=== PATIENT | male | born 1965 | race African-American/Black ===

== ENCOUNTER 2019-08-26 06:30 | Inpatient (IN) | payer OTHER ==
[~2019-08-26] VITALS: Ht 182.9 cm; Wt 99.8 kg
[2019-08-26] MEDS ORDERED: MIDAZOLAM HCL 2 MG/2 ML VIAL ONE (06:37)
[2019-08-26] MEDS ORDERED: ETOMIDATE 2MG/ML 10ML VIAL IV ONE ×2 (06:40→06:45)
[2019-08-26] MEDS ORDERED: SUCCINYLCHOLINE CHLORIDE 200MG/10ML IV ONE ×2 (06:40→06:45)
[2019-08-26] MEDS ORDERED: MIDAZOLAM HCL 50 MG in DEXTROSE 5% WATER 40 ML IV ONE ×3 (06:45→10:00)
[2019-08-26] MEDS ORDERED: MIDAZOLAM HCL 2 MG/2 ML VIAL IV ONE (06:45)
[2019-08-26] MEDS ORDERED: FUROSEMIDE 40MG/4ML VIAL IVP ONE (07:00)
[2019-08-26] MEDS ORDERED: NITROGLYCERIN 50MG PREMIX 250 ML IV ONE (07:00)
[2019-08-26] MEDS ORDERED: ASPIRIN 300MG SUPP PR ONE (07:00)
[2019-08-26 07:06] LABS: EOSINOPHILS % 2.7 % (0.0-5.0); HEMATOCRIT. 41.6 % (42.0-52.0); HEMOGLOBIN. 13.8 g/dL (14.0-18.0); LYMPHOCYTES % 33.9 % (20.0-50.0); MEAN CORPUSCULAR VOLUME 87.4 fL (80.0-94.0); MEAN PLATELET VOLUME 9.8 fl (7.4-10.4); MONOCYTES % 6.9 % (2.0-8.0); NEUTROPHILS % 55.5 % (40.0-76.0); PLATELET 280 x1000/uL (130-400); RED BLOOD CELL COUNT 4.76 mill/uL (4.7-6.1); RED CELL DISTRIBUTION WIDTH 15.6 % (11.6-14.6)
[2019-08-26 07:10] LABS: CHLORIDE 111 mEq/L (98-107)
[2019-08-26] MEDS ORDERED: ENOXAPARIN 100MG/ML SYR SUBCUT ONE (07:45)
[2019-08-26] MEDS ORDERED: AZITHROMYCIN 500 MG in DEXT 5% WATER 250 ML IV ONE (08:00)
[2019-08-26 08:26] LABS: *AMPHETAMINES SCREEN URINE NEGATIVE (NEGATIVE)
[2019-08-26 08:27] LABS: *BARBITURATES SCREEN URINE NEGATIVE (NEGATIVE); *BENZODIAZEPINES SCREEN URINE NEGATIVE (NEGATIVE); *COCAINE SCREEN URINE NEGATIVE (NEGATIVE); METHADONE URINE SCREEN NEGATIVE (NEGATIVE); OPIATES URINE SCREEN NEGATIVE (NEGATIVE)
[2019-08-26 08:28] LABS: CANNABINOID URINE SCREEN NEGATIVE (NEGATIVE); PHENCYCLIDINE URINE SCREEN NEGATIVE (NEGATIVE)
[2019-08-26 08:31] LABS: BG BASE EXCESS -2.8 mmol/L (-2.0-2.0); BG CARBOXYHEMOGLOBIN 0.7 % (0.5-1.5); BG DEOXYHEMOGLOBIN 17.1 % (0.0-5.0); BG METHEMOGLOBIN 0.2 % (0.0-1.5); BG OXYGEN SATURATION 82.7 % (92.0-98.5); BG PCO2 64.4 mmHg (35.0-45.0); BG PH 7.224 (7.350-7.450); BG PO2 56.2 mmHg (75.0-100.0); BG SAMPLE SITE RIGHT RADIAL; BG TIDAL VOLUME(mL) 500 mL; BG VENT MODE VENT - A/C; BG VENT RATE 16 set
[2019-08-26] MEDS ORDERED: PROPOFOL 10MG/ML 100ML 100 ML IV SCH (09:00)
[2019-08-26] MEDS ORDERED: LIDOCAINE HCL 1% 20ML VIAL (Pyxis) INJ ONE (13:49)
[2019-08-26] MEDS ORDERED: ACETAMINOPHEN 650MG/20.3ML UDC NG PRN (15:00)
[2019-08-26] MEDS ORDERED: DIPHENHYDRAMINE 50MG/ML VIAL IV PRN (15:00)
[2019-08-26] MEDS ORDERED: LORAZEPAM 2MG/ML CPJ IV PRN (15:00)
[2019-08-26] MEDS ORDERED: ONDANSETRON HCL 4MG/2ML INJ IV PRN (15:00)
[2019-08-26] MEDS ORDERED: DEXT 5%/0.45% NACL 1000ML 1,000 ML IV SCH (15:30)
[2019-08-26] MEDS ORDERED: PIPERACILLIN/TAZOBACTAM 2.25 G in DEXTROSE 5% WATER 50 ML IV SCH (15:45)
[2019-08-26 16:19] LABS: BG BASE EXCESS 3.3 mmol/L (-2.0-2.0); BG CARBOXYHEMOGLOBIN 0.1 % (0.5-1.5); BG DEOXYHEMOGLOBIN 3.9 % (0.0-5.0); BG FRACTION INSPIRED OXYGEN 100; BG HCO3 ACT 28.6 mmol/L (22.0-26.0); BG METHEMOGLOBIN 0.2 % (0.0-1.5); BG OXYGEN SATURATION 96.1 % (92.0-98.5); BG OXYHEMOGLOBIN 95.8 % (94.0-97.0); BG PCO2 46.3 mmHg (35.0-45.0); BG PH 7.408 (7.350-7.450); BG PO2 94.9 mmHg (75.0-100.0); BG SAMPLE SITE RIGHT RADIAL; BG TIDAL VOLUME(mL) 500 mL; BG VENT MODE VENT - A/C; BG VENT RATE 18 set
[2019-08-26] MEDS: DEXT 5%/0.45% NACL 1000ML 1,000 ML IV SCH ×2 (18:04→18:54)
[2019-08-26] MEDS: FUROSEMIDE 40MG/4ML VIAL IVP SCH (18:05)
[2019-08-26] MEDS ORDERED: FENTANYL CITRATE/PF 500 MCG in SODIUM CHLORIDE 0.9% 40 ML IV PRN (19:30)
[2019-08-26] MEDS ORDERED: PROPOFOL 10MG/ML 100ML 100 ML IV PRN (19:30)
[2019-08-26] MEDS ORDERED: PIPERACILLIN/TAZ 3.375G PREMIX 50 ML IV SCH (23:30)
[2019-08-27] VITALS (65 sets, daily range): BP systolic 104–193; BP diastolic 65–107
[2019-08-27] MEDS: FENTANYL CITRATE/PF 500 MCG in SODIUM CHLORIDE 0.9% 40 ML IV PRN ×3 (01:30→11:27)
[2019-08-27] MEDS ORDERED: CLONIDINE 0.1MG TABLET PO NR (03:15)
[2019-08-27 03:55] LABS: BASOPHILS % 0.7 % (0.0-2.0); EOSINOPHILS % 1.4 % (0.0-5.0); HEMATOCRIT. 32.1 % (42.0-52.0); HEMOGLOBIN. 11.2 g/dL (14.0-18.0); MEAN CORPUSCULAR HEMOGLOBIN 29.7 pg (28.0-32.0); MEAN CORPUSCULAR VOLUME 85.5 fL (80.0-94.0); MEAN PLATELET VOLUME 9.3 fl (7.4-10.4); MONOCYTES % 7.7 % (2.0-8.0); NEUTROPHILS % 72.2 % (40.0-76.0); PLATELET 212 x1000/uL (130-400); RED BLOOD CELL COUNT 3.76 mill/uL (4.7-6.1); RED CELL DISTRIBUTION WIDTH 14.9 % (11.6-14.6)
[2019-08-27] MEDS ORDERED: NITROGLYCERIN OINT 1GM/INCH UDPKT TD SCH (04:00)
[2019-08-27 04:01] LABS: CHLORIDE 109 mEq/L (98-107)
[2019-08-27 04:06] LABS: PHOSPHORUS 4.4 mg/dL (2.5-4.9)
[2019-08-27] MEDS ORDERED: HYDRALAZINE 20MG/ML VIAL IV PRN (04:30)
[2019-08-27] MEDS: HYDRALAZINE 20MG/ML VIAL IV PRN ×2 (05:09→09:20)
[2019-08-27] MEDS: PANTOPRAZOLE SODIUM 40 MG/VIAL IV SCH (09:18)
[2019-08-27] MEDS: ENOXAPARIN 40MG/0.4ML SYR SUBCUT SCH (09:19)
[2019-08-27] MEDS: CLOPIDOGREL 75MG TABLET NG SCH (09:19)
[2019-08-27] MEDS: NITROGLYCERIN OINT 1GM/INCH UDPKT TD SCH ×3 (09:19→21:35)
[2019-08-27] MEDS: CLONIDINE 0.1MG TABLET PO SCH ×3 (09:20→21:35)
[2019-08-27 09:23] LABS: BG BASE EXCESS 8.4 mmol/L (-2.0-2.0); BG CARBOXYHEMOGLOBIN 0.3 % (0.5-1.5); BG FRACTION INSPIRED OXYGEN 100; BG HCO3 ACT 34.3 mmol/L (22.0-26.0); BG METHEMOGLOBIN 0.3 % (0.0-1.5); BG OXYHEMOGLOBIN 97.4 % (94.0-97.0); BG PCO2 53.6 mmHg (35.0-45.0); BG PH 7.424 (7.350-7.450); BG PO2 119.4 mmHg (75.0-100.0); BG SAMPLE SITE LEFT RADIAL; BG TIDAL VOLUME(mL) 500 mL; BG TOTAL HEMOGLOBIN 11.9 g/dL (12.0-18.0); BG VENT MODE VENT - A/C; BG VENT RATE 18 set
[2019-08-27] MEDS: NITROGLYCERIN 50MG PREMIX 250 ML IV PRN (09:38)
[2019-08-27] MEDS ORDERED: HYDRALAZINE HCL 25MG TABLET PO SCH (10:00)
[2019-08-27] MEDS: PIPERACILLIN/TAZOBACTAM 2.25 G in DEXTROSE 5% WATER 50 ML IV SCH ×3 (10:42→21:37)
[2019-08-27] MEDS: FUROSEMIDE 40MG/4ML VIAL IVP SCH ×2 (10:44→16:58)
[2019-08-27] MEDS: PROPOFOL 10MG/ML 100ML 100 ML IV PRN ×4 (10:53→21:33)
[2019-08-27] MEDS ORDERED: KCL 20MEQ/100ML PREMIX 100 ML IV NR (11:00)
[2019-08-27] MEDS: AZITHROMYCIN 500 MG TABLET PO SCH (13:00)
[2019-08-27] MEDS: HYDROXYCHLOROQUINE SULFATE 200MG TABLET PO SCH ×2 (13:00→21:33)
[2019-08-27] MEDS: HYDRALAZINE HCL 50MG TABLET PO SCH ×2 (13:01→21:34)
[2019-08-27 15:48] LABS: CREATINE KINASE 152 IU/L (39-308)
[2019-08-27 16:16] LABS: CLARITY URINE CLEAR (CLEAR); COLOR URINE YELLOW (YELLOW); KETONES URINE NEGATIVE (NEGATIVE); LEUKOCYTE ESTERASE URINE TRACE (NEGATIVE); NITRITE URINE NEGATIVE (NEGATIVE); OCCULT BLOOD URINE 3+ (NEGATIVE); PH URINE 6.5 (4.5-8.0); PROTEIN URINE 1+ (NEGATIVE); SPECIFIC GRAVITY URINE 1.012 (1.005-1.030); UROBILINOGEN URINE 0.2 E.U./dL (0.2-1.0)
[2019-08-27] MEDS ORDERED: CARV25TA47 PO (20:00)
[2019-08-27] MEDS ORDERED: CLON-457 PO (20:00)
[2019-08-27] MEDS ORDERED: CLOP75TA33 PO (20:00)
[2019-08-27] MEDS: CARVEDILOL 6.25 MG TABLET NG SCH (21:36)
[2019-08-28] VITALS (90 sets, daily range): BP systolic 102–171; BP diastolic 58–101
[2019-08-28] MEDS: PROPOFOL 10MG/ML 100ML 100 ML IV PRN ×7 (01:05→21:52)
[2019-08-28] MEDS: PIPERACILLIN/TAZOBACTAM 2.25 G in DEXTROSE 5% WATER 50 ML IV SCH ×4 (04:12→21:54)
[2019-08-28 05:47] LABS: BASOPHILS % 0.5 % (0.0-2.0); EOSINOPHILS % 1.7 % (0.0-5.0); HEMATOCRIT. 32.7 % (42.0-52.0); HEMOGLOBIN. 11.1 g/dL (14.0-18.0); MEAN CORPUSCULAR VOLUME 85.9 fL (80.0-94.0); MEAN PLATELET VOLUME 9.9 fl (7.4-10.4); MONOCYTES % 13.5 % (2.0-8.0); NEUTROPHILS % 69.3 % (40.0-76.0); PLATELET 202 x1000/uL (130-400); RED BLOOD CELL COUNT 3.81 mill/uL (4.7-6.1); RED CELL DISTRIBUTION WIDTH 15.4 % (11.6-14.6)
[2019-08-28] MEDS: FUROSEMIDE 40MG/4ML VIAL IVP SCH ×2 (06:38→09:47)
[2019-08-28] MEDS: NITROGLYCERIN OINT 1GM/INCH UDPKT TD SCH (06:39)
[2019-08-28] MEDS: HYDRALAZINE HCL 50MG TABLET PO SCH ×3 (06:40→21:48)
[2019-08-28] MEDS: CLONIDINE 0.1MG TABLET PO SCH ×3 (06:43→21:47)
[2019-08-28] MEDS: NITROGLYCERIN 50MG PREMIX 250 ML IV PRN ×2 (06:44→21:50)
[2019-08-28] MEDS: FENTANYL CITRATE/PF 500 MCG in SODIUM CHLORIDE 0.9% 40 ML IV PRN ×2 (07:42→17:35)
[2019-08-28 08:37] LABS: BG BASE EXCESS 6.5 mmol/L (-2.0-2.0); BG CARBOXYHEMOGLOBIN 0.3 % (0.5-1.5); BG DEOXYHEMOGLOBIN 1.7 % (0.0-5.0); BG METHEMOGLOBIN 0.3 % (0.0-1.5); BG OXYGEN SATURATION 98.3 % (92.0-98.5); BG OXYHEMOGLOBIN 97.7 % (94.0-97.0); BG PCO2 38.6 mmHg (35.0-45.0); BG PH 7.508 (7.350-7.450); BG SAMPLE SITE RIGHT RADIAL; BG TIDAL VOLUME(mL) 500 mL; BG TOTAL HEMOGLOBIN 11.1 g/dL (12.0-18.0); BG VENT MODE VENT - A/C; BG VENT RATE 18 set
[2019-08-28] MEDS: AZITHROMYCIN 500 MG TABLET PO SCH (08:50)
[2019-08-28] MEDS: CLOPIDOGREL 75MG TABLET NG SCH (08:50)
[2019-08-28] MEDS: HYDROXYCHLOROQUINE SULFATE 200MG TABLET PO SCH ×2 (08:50→16:15)
[2019-08-28] MEDS: CARVEDILOL 6.25 MG TABLET NG SCH ×2 (08:54→21:49)
[2019-08-28] MEDS: PANTOPRAZOLE SODIUM 40 MG/VIAL IV SCH ×2 (08:54→19:17)
[2019-08-28] MEDS: ENOXAPARIN 40MG/0.4ML SYR SUBCUT SCH (08:55)
[2019-08-28] MEDS ORDERED: METOLAZONE 2.5MG TABLET PO SCH (09:00)
[2019-08-28] MEDS ORDERED: POTASSIUM CHLORIDE INJ 40 MEQ in DEXT 5% WATER 250 ML IV NR (11:30)
[2019-08-28] MEDS: DEXT 5%/0.45% NACL 1000ML 1,000 ML IV SCH (16:15)
[2019-08-29] VITALS (94 sets, daily range): BP systolic 86–166; BP diastolic 47–93
[2019-08-29] MEDS: PIPERACILLIN/TAZOBACTAM 2.25 G in DEXTROSE 5% WATER 50 ML IV SCH ×4 (04:39→21:11)
[2019-08-29] MEDS: FUROSEMIDE 40MG/4ML VIAL IVP SCH (04:49)
[2019-08-29] MEDS: PROPOFOL 10MG/ML 100ML 100 ML IV PRN ×4 (04:55→18:22)
[2019-08-29 05:36] LABS: BASOPHILS % 0.5 % (0.0-2.0); EOSINOPHILS % 4.2 % (0.0-5.0); HEMATOCRIT. 30.6 % (42.0-52.0); HEMOGLOBIN. 10.3 g/dL (14.0-18.0); LYMPHOCYTES % 15.5 % (20.0-50.0); MEAN CORPUSCULAR HEMOGLOBIN 29.2 pg (28.0-32.0); MEAN CORPUSCULAR VOLUME 86.5 fL (80.0-94.0); MEAN PLATELET VOLUME 9.5 fl (7.4-10.4); MONOCYTES % 9.6 % (2.0-8.0); NEUTROPHILS % 70.2 % (40.0-76.0); PLATELET 194 x1000/uL (130-400); RED BLOOD CELL COUNT 3.54 mill/uL (4.7-6.1); RED CELL DISTRIBUTION WIDTH 15.7 % (11.6-14.6)
[2019-08-29] MEDS: FENTANYL CITRATE/PF 1,000 MCG in SODIUM CHLORIDE 0.9% 80 ML IV PRN (05:36)
[2019-08-29] MEDS: CLONIDINE 0.1MG TABLET PO SCH ×3 (05:50→21:56)
[2019-08-29] MEDS: HYDRALAZINE HCL 50MG TABLET PO SCH ×3 (05:50→21:56)
[2019-08-29] MEDS ORDERED: POTASSIUM CHLORIDE 20MEQ/PACKET PO SCH (07:15)
[2019-08-29] MEDS: CLOPIDOGREL 75MG TABLET NG SCH (09:13)
[2019-08-29] MEDS: PANTOPRAZOLE SODIUM 40 MG/VIAL IV SCH ×2 (09:13→17:02)
[2019-08-29] MEDS: AZITHROMYCIN 500 MG TABLET PO SCH (09:13)
[2019-08-29] MEDS: HYDROXYCHLOROQUINE SULFATE 200MG TABLET PO SCH (09:13)
[2019-08-29] MEDS: CARVEDILOL 6.25 MG TABLET NG SCH ×2 (09:14→21:12)
[2019-08-29] MEDS: ENOXAPARIN 30MG/0.3ML SYR SUBCUT SCH (09:15)
[2019-08-29 10:32] LABS: BG BASE EXCESS 2.2 mmol/L (-2.0-2.0); BG CARBOXYHEMOGLOBIN 0.2 % (0.5-1.5); BG DEOXYHEMOGLOBIN 1.4 % (0.0-5.0); BG FRACTION INSPIRED OXYGEN 60; BG HCO3 ACT 27.3 mmol/L (22.0-26.0); BG METHEMOGLOBIN 0.3 % (0.0-1.5); BG OXYGEN SATURATION 98.6 % (92.0-98.5); BG OXYHEMOGLOBIN 98.1 % (94.0-97.0); BG PCO2 44.6 mmHg (35.0-45.0); BG PH 7.404 (7.350-7.450); BG PO2 143.9 mmHg (75.0-100.0); BG SAMPLE SITE RIGHT RADIAL; BG TIDAL VOLUME(mL) 500 mL; BG TOTAL HEMOGLOBIN 10.8 g/dL (12.0-18.0); BG VENT MODE VENT - A/C; BG VENT RATE 14 set
[2019-08-29] MEDS ORDERED: PROPOFOL 10MG/ML 100ML 100 ML IV PRN (11:45)
[2019-08-29] MEDS: DEXT 5%/0.45% NACL 1000ML 1,000 ML IV SCH (16:45)
[2019-08-30] VITALS (64 sets, daily range): BP systolic 116–192; BP diastolic 67–104
[2019-08-30] MEDS: PROPOFOL 10MG/ML 100ML 100 ML IV PRN (00:53)
[2019-08-30] MEDS: PIPERACILLIN/TAZOBACTAM 2.25 G in DEXTROSE 5% WATER 50 ML IV SCH ×4 (03:14→21:22)
[2019-08-30] MEDS: HYDRALAZINE HCL 50MG TABLET PO SCH ×3 (05:23→23:06)
[2019-08-30] MEDS: CLONIDINE 0.1MG TABLET PO SCH ×3 (05:23→23:07)
[2019-08-30 05:44] LABS: EOSINOPHILS % 6.6 % (0.0-5.0); HEMATOCRIT. 32.1 % (42.0-52.0); HEMOGLOBIN. 10.8 g/dL (14.0-18.0); LYMPHOCYTES % 16.1 % (20.0-50.0); MEAN CORPUSCULAR HEMOGLOBIN 29.1 pg (28.0-32.0); MEAN CORPUSCULAR VOLUME 86.5 fL (80.0-94.0); MEAN PLATELET VOLUME 9.7 fl (7.4-10.4); MONOCYTES % 10.1 % (2.0-8.0); NEUTROPHILS % 66.2 % (40.0-76.0); PLATELET 180 x1000/uL (130-400); RED BLOOD CELL COUNT 3.72 mill/uL (4.7-6.1); RED CELL DISTRIBUTION WIDTH 15.6 % (11.6-14.6)
[2019-08-30 05:54] LABS: PHOSPHORUS 6.4 mg/dL (2.5-4.9)
[2019-08-30] MEDS: FENTANYL CITRATE/PF 1,000 MCG in SODIUM CHLORIDE 0.9% 80 ML IV PRN (06:50)
[2019-08-30] MEDS: CLOPIDOGREL 75MG TABLET NG SCH (08:21)
[2019-08-30] MEDS: CARVEDILOL 6.25 MG TABLET NG SCH ×2 (08:21→21:03)
[2019-08-30] MEDS: ENOXAPARIN 30MG/0.3ML SYR SUBCUT SCH (08:22)
[2019-08-30] MEDS: PANTOPRAZOLE SODIUM 40 MG/VIAL IV SCH ×2 (08:22→16:14)
[2019-08-30 09:54] LABS: BG BASE EXCESS 3.1 mmol/L (-2.0-2.0); BG CARBOXYHEMOGLOBIN 0.3 % (0.5-1.5); BG DEOXYHEMOGLOBIN 2.7 % (0.0-5.0); BG FRACTION INSPIRED OXYGEN 40; BG HCO3 ACT 27.9 mmol/L (22.0-26.0); BG METHEMOGLOBIN 0.3 % (0.0-1.5); BG OXYGEN SATURATION 97.3 % (92.0-98.5); BG OXYHEMOGLOBIN 96.7 % (94.0-97.0); BG PCO2 43.5 mmHg (35.0-45.0); BG PH 7.425 (7.350-7.450); BG PO2 95.9 mmHg (75.0-100.0); BG SAMPLE SITE RIGHT RADIAL; BG TIDAL VOLUME(mL) 500 mL; BG TOTAL HEMOGLOBIN 11.5 g/dL (12.0-18.0); BG VENT MODE VENT - A/C; BG VENT RATE 14 set
[2019-08-30] MEDS: DEXT 5%/0.45% NACL 1000ML 1,000 ML IV SCH (11:15)
[2019-08-30] MEDS ORDERED: POTASSIUM CHLORIDE INJ 40 MEQ in DEXT 5% WATER 250 ML IV ONE (11:30)
[2019-08-30] MEDS: HYDRALAZINE 20MG/ML VIAL IV PRN ×3 (11:35→21:04)
[2019-08-30 14:02] LABS: BG BASE EXCESS -2.1 mmol/L (-2.0-2.0); BG CARBOXYHEMOGLOBIN 0.3 % (0.5-1.5); BG DEOXYHEMOGLOBIN 2.1 % (0.0-5.0); BG FRACTION INSPIRED OXYGEN 40; BG HCO3 ACT 22.2 mmol/L (22.0-26.0); BG METHEMOGLOBIN 0.3 % (0.0-1.5); BG OXYGEN SATURATION 97.9 % (92.0-98.5); BG OXYHEMOGLOBIN 97.3 % (94.0-97.0); BG PCO2 36.2 mmHg (35.0-45.0); BG PH 7.405 (7.350-7.450); BG PO2 111.9 mmHg (75.0-100.0); BG PRESSURE SUPPORT 8; BG SAMPLE SITE RIGHT RADIAL; BG TOTAL HEMOGLOBIN 10.8 g/dL (12.0-18.0); BG VENT MODE VENT - CPAP
[2019-08-30 20:51] LABS: PHOSPHORUS 5.8 mg/dL (2.5-4.9)
[2019-08-31] VITALS (38 sets, daily range): BP systolic 139–204; BP diastolic 54–116
[2019-08-31] MEDS: HYDRALAZINE 20MG/ML VIAL IV PRN ×3 (03:10→20:14)
[2019-08-31] MEDS: PIPERACILLIN/TAZOBACTAM 2.25 G in DEXTROSE 5% WATER 50 ML IV SCH ×4 (03:11→21:30)
[2019-08-31] MEDS: HYDRALAZINE HCL 50MG TABLET PO SCH ×3 (05:13→21:30)
[2019-08-31] MEDS: CLONIDINE 0.1MG TABLET PO SCH ×3 (05:13→21:30)
[2019-08-31 05:44] LABS: BASOPHILS % 0.6 % (0.0-2.0); EOSINOPHILS % 4.4 % (0.0-5.0); HEMATOCRIT. 34.8 % (42.0-52.0); HEMOGLOBIN. 11.8 g/dL (14.0-18.0); LYMPHOCYTES % 11.2 % (20.0-50.0); MEAN CORPUSCULAR HEMOGLOBIN 29.1 pg (28.0-32.0); MEAN CORPUSCULAR VOLUME 85.5 fL (80.0-94.0); MEAN PLATELET VOLUME 9.3 fl (7.4-10.4); MONOCYTES % 10.7 % (2.0-8.0); NEUTROPHILS % 73.1 % (40.0-76.0); PLATELET 246 x1000/uL (130-400); RED BLOOD CELL COUNT 4.07 mill/uL (4.7-6.1); RED CELL DISTRIBUTION WIDTH 15.4 % (11.6-14.6)
[2019-08-31] MEDS ORDERED: POTASSIUM CHLORIDE 20MEQ TABLET SR PO SCH (06:30)
[2019-08-31] MEDS: ENOXAPARIN 30MG/0.3ML SYR SUBCUT SCH (08:56)
[2019-08-31] MEDS: CLOPIDOGREL 75MG TABLET NG SCH (08:56)
[2019-08-31] MEDS: CARVEDILOL 6.25 MG TABLET NG SCH ×2 (08:56→20:14)
[2019-08-31] MEDS: PANTOPRAZOLE SODIUM 40 MG/VIAL IV SCH ×2 (08:56→16:50)
[2019-08-31] MEDS: DEXT 5%/0.45% NACL 1000ML 1,000 ML IV SCH (08:57)
[2019-08-31] MEDS ORDERED: POTASSIUM CHLORIDE INJ 40 MEQ in DEXT 5% WATER 250 ML IV ONE (12:00)
[2019-08-31] MEDS: AMLODIPINE 5MG TABLET PO SCH (20:14)
[2019-09-01] VITALS (13 sets, daily range): BP systolic 129–192; BP diastolic 67–103
[2019-09-01] MEDS: CLONIDINE 0.2MG TABLET PO SCH ×3 (05:30→22:16)
[2019-09-01] MEDS: HYDRALAZINE HCL 50MG TABLET PO SCH ×3 (05:30→22:17)
[2019-09-01 05:41] LABS: BASOPHILS % 1.3 % (0.0-2.0); EOSINOPHILS % 5.4 % (0.0-5.0); HEMATOCRIT. 32.2 % (42.0-52.0); LYMPHOCYTES % 19.3 % (20.0-50.0); MEAN CORPUSCULAR HEMOGLOBIN 28.8 pg (28.0-32.0); MEAN CORPUSCULAR VOLUME 84.6 fL (80.0-94.0); MONOCYTES % 12.8 % (2.0-8.0); NEUTROPHILS % 61.2 % (40.0-76.0); PLATELET 240 x1000/uL (130-400); RED BLOOD CELL COUNT 3.81 mill/uL (4.7-6.1); RED CELL DISTRIBUTION WIDTH 15.2 % (11.6-14.6)
[2019-09-01] MEDS ORDERED: POTASSIUM CHLORIDE INJ 60 MEQ in DEXT 5% WATER 500 ML IV NR (08:00)
[2019-09-01] MEDS: PANTOPRAZOLE SODIUM 40 MG/VIAL IV SCH (08:45)
[2019-09-01] MEDS: CLOPIDOGREL 75MG TABLET NG SCH (08:45)
[2019-09-01] MEDS: CARVEDILOL 6.25 MG TABLET NG SCH ×2 (08:45→22:17)
[2019-09-01] MEDS: ENOXAPARIN 30MG/0.3ML SYR SUBCUT SCH (08:45)
[2019-09-01] MEDS: AMLODIPINE 5MG TABLET PO SCH ×2 (08:46→22:18)
[2019-09-01] MEDS ORDERED: POTASSIUM CHLORIDE 20MEQ TABLET SR PO SCH (11:00)
[2019-09-01 12:31] LABS: PHOSPHORUS 4.2 mg/dL (2.5-4.9)
[2019-09-01] MEDS ORDERED: IPRATROPIUM/ALBUTEROL 0.5-3(2.5)MG/3ML NEB HHN PRN (15:15)
[2019-09-01 16:29] LABS: PHOSPHORUS 3.5 mg/dL (2.5-4.9)
[2019-09-01] MEDS ORDERED: ATORVASTATIN CALCIUM 10MG TABLET PO SCH (21:00)
[2019-09-02] VITALS: BP 157/67
[2019-09-02 04:00] VITALS: BP 166/63
[2019-09-02] MEDS: HYDRALAZINE 20MG/ML VIAL IV PRN ×2 (04:22→16:27)
[2019-09-02 06:05] LABS: BASOPHILS % 1.2 % (0.0-2.0); EOSINOPHILS % 3.9 % (0.0-5.0); HEMATOCRIT. 35.3 % (42.0-52.0); LYMPHOCYTES % 19.1 % (20.0-50.0); MEAN CORPUSCULAR VOLUME 85.4 fL (80.0-94.0); MEAN PLATELET VOLUME 9.3 fl (7.4-10.4); MONOCYTES % 11.1 % (2.0-8.0); NEUTROPHILS % 64.7 % (40.0-76.0); PLATELET 271 x1000/uL (130-400); RED BLOOD CELL COUNT 4.14 mill/uL (4.7-6.1); RED CELL DISTRIBUTION WIDTH 14.9 % (11.6-14.6)
[2019-09-02] MEDS: HYDRALAZINE HCL 50MG TABLET PO SCH ×2 (06:40→13:13)
[2019-09-02] MEDS: CLONIDINE 0.2MG TABLET PO SCH ×2 (06:40→13:12)
[2019-09-02 06:52] LABS: PHOSPHORUS 3.7 mg/dL (2.5-4.9)
[2019-09-02 08:00] VITALS: BP 185/94
[2019-09-02] MEDS ORDERED: POTASSIUM CHLORIDE 20MEQ TABLET SR PO NR (08:00)
[2019-09-02] MEDS: CLOPIDOGREL 75MG TABLET NG SCH (08:25)
[2019-09-02] MEDS: CARVEDILOL 6.25 MG TABLET NG SCH (08:25)
[2019-09-02] MEDS: ENOXAPARIN 30MG/0.3ML SYR SUBCUT SCH (08:25)
[2019-09-02] MEDS: AMLODIPINE 5MG TABLET PO SCH (08:25)
[2019-09-02] MEDS ORDERED: FAMOTIDINE 20MG TABLET PO SCH (09:00)
[2019-09-02 12:00] VITALS: BP 158/81
[2019-09-02 15:59] VITALS: BP 169/95
[2019-09-02 16:34] VITALS: BP 169/95
[2019-09-02] MEDS ORDERED: CLONIDINE 0.2MG TABLET PO SCH (17:45)
[2019-09-02] MEDS ORDERED: CARVEDILOL 12.5MG TABLET NG SCH (21:00)
== END 2019-09-02 18:40 | disposition home or self-care (01) | DRG 870 ==
LOC: ER 06:30 → EDBEDREQSVC 07:45 → EDBEDREQ 07:45 → ENRESERV 08-27 05:35 → MICUSO 08-27 07:30 → CVICU 08-30 12:32 → 5WST 09-01 10:45
PROVIDERS: ADMIT Internal Medicine; ATTEND Internal Medicine
PROC: 02HV33Z Insertion of Infusion Device into Superior Vena Cava, Percutaneous Approach (ICD-10-PCS; principal; 2019-08-26)
PROC: 5A1955Z Respiratory Ventilation, Greater than 96 Consecutive Hours (ICD-10-PCS; 2019-08-26)
PROC: B548ZZA Ultrasonography of Superior Vena Cava, Guidance (ICD-10-PCS; 2019-08-26)
PROC: 0BH17EZ Insertion of Endotracheal Airway into Trachea, Via Natural or Artificial Opening (ICD-10-PCS; 2019-08-26)
DX: A41.9 Sepsis, unspecified organism (principal); J96.02 Acute respiratory failure with hypercapnia; J18.9 Pneumonia, unspecified organism; N17.0 Acute kidney failure with tubular necrosis; J96.01 Acute respiratory failure with hypoxia; I50.43 Acute on chronic combined systolic (congestive) and diastolic (congestive) heart failure; J44.0 Chronic obstructive pulmonary disease with (acute) lower respiratory infection; K92.2 Gastrointestinal hemorrhage, unspecified; E87.1 Hypo-osmolality and hyponatremia; I13.0 Hypertensive heart and chronic kidney disease with heart failure and stage 1 through stage 4 chronic kidney disease, or unspecified chronic kidney disease; I38 Endocarditis, valve unspecified; I25.10 Atherosclerotic heart disease of native coronary artery without angina pectoris; G47.33 Obstructive sleep apnea (adult) (pediatric); D72.810 Lymphocytopenia; E87.6 Hypokalemia; N18.9 Chronic kidney disease, unspecified; Z95.2 Presence of prosthetic heart valve; Z95.5 Presence of coronary angioplasty implant and graft; Z86.79 Personal history of other diseases of the circulatory system; Z72.0 Tobacco use; Z79.899 Other long term (current) drug therapy; Z20.828 Contact with and (suspected) exposure to other viral communicable diseases
CPT/HCPCS: 36415; 36600; 71045; 76937; 80048; 80053; 80305; 81003; 82375; 82550; 82728; 82805; 83605; 83615; 83735; 83880; 84100; 84132; 84145; 84478; 84484; 85025; 85379; 86140; 86160; 87070; 87420; 87635; 87804; 92610; 93005; 93306; 94002; 94003; 97116; 97162; 99291; C1725; C9113; J0330; J0360; J0456; J1650; J1940; J2060; J2250; J2543; J2704; J3010; J3480; J3490; J7060

== ENCOUNTER 2024-08-13 11:23 | Emergency (ER) | payer OTHER ==
[~2024-08-13] VITALS: Ht 172.7 cm; Wt 85.0 kg
[~2024-08-13 11:23] MED LIST: CARV25TA47 PO; CLON-493 PO; CLOP75TA33 PO
[2024-08-13 11:29] VITALS: O2SAT 98
[2024-08-13 13:04] LABS: CHLORIDE 100 mEq/L (98-107); POTASSIUM 4.7 mEq/L (3.5-5.1); SODIUM 139 mEq/L (136-145)
[2024-08-13 13:05] LABS: CARBON DIOXIDE 30 mEq/L (21-32)
[2024-08-13 13:08] LABS: HEMATOCRIT. 33.9 % (42.0-52.0); MEAN CORPUSCULAR HEMOGLOBIN 29.1 pg (28.0-32.0); MEAN CORPUSCULAR HGB CONC 32.5 g/dL (31.0-37.0); MEAN CORPUSCULAR VOLUME 89.7 fL (80.0-94.0); MEAN PLATELET VOLUME 8.2 fl (7.4-10.4); PLATELET 300 x1000/uL (130-400); RED BLOOD CELL COUNT 3.78 mill/uL (4.7-6.1)
[2024-08-13 13:10] LABS: GLUCOSE 113 mg/dL (70-105); UREA NITROGEN BLOOD 52 mg/dL (9-23)
[2024-08-13 13:16] LABS: INR 1.2; PROTHROMBIN TIME 13.1 sec (9.6-11.0)
[2024-08-13 13:25] LABS: TROPONIN I HIGH SENSITIVITY 120 ng/L (3.0-53)
[2024-08-13 13:47] LABS: DIFFERENTIAL COMMENT 1
[2024-08-13] MEDS: CEFTRIAXONE 1GM/50ML 50 ML IV NR (14:24)
[2024-08-13] MEDS: AZITHROMYCIN 500MG/250ML 250 ML IV NR (15:43)
[2024-08-13 17:22] VITALS: BP 109/68; PULSE 78; RESP 16; TEMP 36.6; O2SAT 99
[2024-08-14 16:19] LABS: ANISOCYTOSIS 1+; PLATELET ESTIMATE NORMAL
== END 2024-08-13 17:17 | disposition short-term general hospital (02) ==
LOC: ER 11:23 → CANBEDREQ 14:08 → ER 17:17
DX: J96.01 Acute respiratory failure with hypoxia (principal); J18.1 Lobar pneumonia, unspecified organism; J44.0 Chronic obstructive pulmonary disease with (acute) lower respiratory infection; I10 Essential (primary) hypertension; Z79.899 Other long term (current) drug therapy; Z79.02 Long term (current) use of antithrombotics/antiplatelets; Z87.891 Personal history of nicotine dependence
CPT/HCPCS: 80048; 83880; 83605; 85025; 85610; 87040; 84484; 71045; 93005; 96367; 96365; 99285; J0456; J0696; Z7610 ×2